=== PATIENT | male | born 1985 | race Caucasian/White ===

== ENCOUNTER → 2022-08-16 | Outpatient (CLI) | payer OTHER | END | disposition home or self-care (01) | LOC: MRI 08:00 | PROVIDERS: ATTEND Psychiatry & Neurology Neurology | DX: M47.22 Other spondylosis with radiculopathy, cervical region (principal); M50.11 Cervical disc disorder with radiculopathy, high cervical region; M48.02 Spinal stenosis, cervical region; R25.3 Fasciculation ==